=== PATIENT | male | born 1995 | race Caucasian/White ===

== ENCOUNTER 2024-02-28 18:00 | Emergency (ER) | payer OTHER ==
[~2024-02-28] VITALS: Ht 175.3 cm; Wt 66.0 kg
[2024-02-28 18:05] VITALS: TEMP 98; O2SAT 97
[2024-02-28] MEDS: HYDROCODONE/ACETAMINOPHEN 5/325MG TABLET PO STA (20:04)
[2024-02-28] MEDS ORDERED: IBUP-2029 MT (21:17)
[2024-02-28] MEDS ORDERED: HYDR-4001 MT (21:17)
[2024-02-28 23:04] VITALS: BP 124/68; PULSE 68; RESP 18
[2024-02-28] MEDS ORDERED: OXYC-100 MT (23:04)
== END 2024-02-28 23:06 | disposition home or self-care (01) ==
LOC: ER 18:00
DX: S42.002A Fracture of unspecified part of left clavicle, initial encounter for closed fracture (principal); X58.XXXA Exposure to other specified factors, initial encounter; Y93.89 Activity, other specified; Y92.89 Other specified places as the place of occurrence of the external cause; Y99.8 Other external cause status
CPT/HCPCS: 73000; 99283